=== PATIENT | female | born 1945 | race Caucasian/White ===

== ENCOUNTER 2017-03-20 21:47 | Emergency (ER) | payer MEDICARE, OTHER ==
[~2017-03-20] VITALS: Ht 157.5 cm; Wt 93.0 kg
[2017-03-20] MEDS ORDERED: FENO134C PO (22:02)
[2017-03-20] MEDS ORDERED: ATOR40TA PO (22:02)
[2017-03-20] MEDS ORDERED: ATEN-94 PO (22:02)
[2017-03-20] MEDS ORDERED: PREG100C PO (22:02)
[2017-03-20] MEDS ORDERED: METF10002 PO (22:02)
[2017-03-20] MEDS ORDERED: ESOM40CA PO (22:02)
[2017-03-20] MEDS ORDERED: AMLO10TA4 PO (22:02)
[2017-03-20] MEDS ORDERED: LOSA50TA6 PO (22:02)
[2017-03-20] MEDS ORDERED: EXEN2VIA SQ (22:02)
[2017-03-20] MEDS ORDERED: LEVO50TA PO (22:02)
[2017-03-20] MEDS ORDERED: TORADOL IM STA (22:14)
--- NOTE | 2017-03-20 22:16 | ER.PDOC ---
General Chief Complaint: Extremities Stated Complaint: KNEE PAIN Time seen by MD: 22:14 Source: patient Exam Limitations: no limitations History of Present Illness Initial Comments Left knee pain. Has chronic left knee pain and recently had a steroid shot. Injured knee entering into the car this evening. Onset: just prior to arrival Context: twist Associated Symptoms: popping sensation Allergies: Coded Allergies: Sulfa (Sulfonamide Antibiotics) (Verified Allergy, Severe, Swelling, ) amoxicillin (Verified Allergy, Severe, Rash, 03/20/17) quinapril (Verified Allergy, Severe, Shortness of Breath, 03/20/17) Home Meds Reported Medications Losartan Potassium 50 Mg Tablet1 Tab PO DAILY #30 TAB Ref 5 03/20/17 Fenofibrate,Micronized (Fenofibrate)134 Mg Capsule1 Cap PO DAILY #30 CAP Ref 5 03/20/17 Atorvastatin 40MG (Lipitor 40MG)40 Mg Tablet1 Tab PO HS #90 TAB Ref 1 03/20/17 Metformin Hcl 1,000 Mg Tablet1 Tab PO BID #60 TAB Ref 5 03/20/17 Pregabalin (Lyrica)100 Mg Capsule1 Cap PO BID #90 CAP Ref 2 03/20/17 Amlodipine Besylate (Norvasc)10 Mg Tablet1 Tab PO DAILY #30 TAB Ref 5 03/20/17 Atenolol 50MG (Tenormin 50MG)50 Mg Tablet1 Tab PO DAILY #30 TAB Ref 5 03/20/17 Exenatide Microspheres (Bydureon)2 Mg Vial2 Mg SQ weekly 03/20/17 Esomeprazole Magnesium (Nexium)40 Mg Capsule.dr1 Cap PO DAILY #30 CAP Ref 5 03/20/17 Levothyroxine Sodium (Synthroid)50 Mcg Tablet1 Tab PO DAILY #30 TAB Ref 5 03/20/17 Past Medical History Medical History: diabetes, GERD, high cholesterol, hypertension, thyroid disease Surgical History: cancer surgery LMP (females 10-50): postmenopause Social History Smoking: non-smoker Alcohol Use: none Drug Use: none Review of Systems Constitutional: no symptoms reported Respiratory: no symptoms reported Cardiovascular: no symptoms reported Gastrointestinal: no symptoms reported Genitourinary: no symptoms reported Musculoskeletal: see HPI All Other Systems: Reviewed and Negative Physical Exam General Appearance: Alert, No Apparent Distress Foot: nml inspection, non-tender, nml color/temp, skin intact Knee: tenderness (left) Gait: unable to bear weight Neuro/Vasc/Tendon: sensation nml, motor nml, no vascular compromise, tendon function nml Head/ENT: nml inspection, pharynx nml Neck/Back: nml inspection, non-tender Abdomen: non-tender, pelvis stable Results/Orders Results/Orders Administered Medications Medications (Trade) Dose Ordered Sig/Renee Route PRN Reason Start Time Stop Time Status Last Admin Dose Admin Ketorolac Tromethamine (Toradol) 60 mg STAT STAT IM 03/20/17 22:14 03/20/17 22:15 DC 03/20/17 22:20 EKG/XRAY/CT/US XRAY: knee (No osseous abnormality of left knee) Departure Time of Disposition: 22:33 Disposition: 01 HOME, SELF-CARE Impression: Primary Impression: Left knee injury Qualified Code: S89.92XA - Unspecified injury of left lower leg, initial encounter Condition: Stable Referrals: PCP,UNKNOWN (PCP) PRIMARY CARE PROVIDER Additional Instructions: Tramadol Ibuprofen F/U with your Ortho Doctor in 1-2 days. Call for appointment. ERIC PETERSEN MD March 20, 2017 22:16
[2017-03-20] MEDS ORDERED: TORADOL ONE (22:17)
--- NOTE | 2017-03-20 22:20 | NUR ---
RAD RAD AT BEDSIDE
--- NOTE | 2017-03-20 22:36 | DIREP ---
PROCEDURE:XRAY KNEE 1-2 VWS-LT COMPARISON:None. INDICATIONS:pain FINDINGS: BONES:No acute fracture, joint effusion or loose bodies are seen. JOINTS:Sharpening of the tibial spines with 9 of the medial joint space consistent with degeneration.. 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 SOFT TISSUES:Normal. OTHER:No additional findings. 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 No acute fracture, joint effusion or loose bodies are seen. Dictated by: Jeremie Way MD on 03/20/2017 at 10:34 PM
== END 2017-03-20 22:45 | disposition home or self-care (01) ==
LOC: ER 21:47
DX: S89.92XA Unspecified injury of left lower leg, initial encounter (principal); E07.9 Disorder of thyroid, unspecified; E11.9 Type 2 diabetes mellitus without complications; E78.00 Pure hypercholesterolemia, unspecified; I10 Essential (primary) hypertension; K21.9 Gastro-esophageal reflux disease without esophagitis; Z88.0 Allergy status to penicillin; Z88.2 Allergy status to sulfonamides; Z88.1 Allergy status to other antibiotic agents; Z88.8 Allergy status to other drugs, medicaments and biological substances; Z79.899 Other long term (current) drug therapy; X50.1XXA Overexertion from prolonged static or awkward postures, initial encounter; Y93.89 Activity, other specified; Y92.810 Car as the place of occurrence of the external cause; Y99.8 Other external cause status
CPT/HCPCS: 29505; 73560; 96372; 99284; J1885